=== PATIENT | female | born 2000 | race Caucasian/White ===

== ENCOUNTER 2024-02-24 11:45 | Emergency (ER) | payer MEDICAID, SELFPAY ==
[2024-02-24 11:49] VITALS: BP 130/80; PULSE 90; RESP 17; TEMP 36.8; O2SAT 98; BMI 41.1
--- NOTE | 2024-02-24 12:11 | PD.EDEAR ---
ED Ear RME/HPI General Chief complaint: Ear Stated complaint: LEFT EAR RUPTURED ; HX RUPTURED EARDRUM EL Time Seen by Provider: 02/24/24 11:50 Source: patient Arrival date/time: 02/24/24 11:45 Is a 23-year-old female presents emergency department with complaints of drainage to her left ear. Patient states she did travel up to the [facility] [place] and after that she felt popping and bulging to her left ear and noticed today there was a blood she does have a history of left eardrum rupture spontaneous. She does have a history of bilateral ear tubes as a child. Denies no fever no pain at this time. Mode of arrival: ambulatory Limitations: no limitations Related Data Previous Rx's ?Medication ?Instructions ?Recorded famotidine 20 mg tablet 20 mg PO BID #30 tabs 02/19/18 hydroxyzine HCl 25 mg tablet See Rx Instructions .Route 02/19/18 .COMPLEX #30 tabs ipratropium bromide 21 mcg (0.03 2 spray intranasal BID #30 mL 05/10/18 %) nasal spray hydrocodone 5 mg-acetaminophen 325 1 tab PO Q4H PRN pain #8 tabs 06/26/20 mg tablet ibuprofen 600 mg tablet 400 mg (0.6667 x 600 mg) PO Q6H 06/26/20 PRN pain #14 tabs amoxicillin 875 mg-potassium 1 tab PO BID 5 days #10 tabs 02/24/24 clavulanate 125 mg tablet loratadine 10 mg tablet (Allergy 10 mg PO QDAY #30 tabs 02/24/24 Relief (loratadine)) Allergies Allergy/AdvReac Type Severity Reaction Status Date / Time erythromycin base Allergy Mild Rash Verified 02/24/24 11:47 Penicillins Allergy Mild Rash Verified 02/24/24 11:47 sulfisoxazole Allergy Mild RASH, Verified 02/24/24 11:47 VOMITING Review of Systems Review of Systems Systems Reviewed: All systems reviewed, normal except as documented Narrative Review of Systems: Gen: No fever, no chills, no weight loss EYES: No discharge, no visual changes, no pain HEENT: +ear draniage , no congestion, no sore throat PULM: No shortness of breath, no cough, no congestion CV: No chest pain, no dyspnea on exertion, no palpitations GI: No nausea, no vomiting, no diarrhea, no pain, no constipation : No frequency, no urgency,? no dysuria Musc/skel: No joint pain, no back pain Skin: No rash? Past Medical History Past Medical History NEUROLOGIC: Negative Cerebrovascular Accident, Alzheimer's Disease or Meningitis CARDIAC: Negative Myocardial Infarction or Congestive Heart Failure RESPIRATORY: Positive Asthma; Negative Chronic Obstructive Pulmonary Disease (COPD), Emphysema or Cystic Fibrosis GASTROINTESTINAL: Negative Liver Cancer or Pancreatic Cancer GENITOURINARY: Negative Renal Disease MUSCULOSKELETAL: Negative Muscular Dystrophy or Bone Cancer ENT: Negative Blind or Deafness ENDOCRINE: Negative Endocrine Disorders, Diabetes Mellitus Type 1 or Diabetes Mellitus Type 2 (pre dm takes metformin) OTHER HISTORY: Negative Down Syndrome or Developmental Delay Surgical History SURGICAL: Positive Tympanostomy Tube and Tonsillectomy Social History SMOKING STATUS: Never smoker ED Exam General Limitations: Present no limitations General appearance: Present alert and in no apparent distress Head Head exam: Present atraumatic Eye Eye exam: Present normal appearance, PERRL and EOMI ENT ENT exam: Present normal oropharynx and mucous membranes moist Expanded ENT Exam External ear exam: Present normal external inspection TM/Canal exam: Left TM: perforation (+ Bloody discharge noted in canal) Neck Neck exam: Present normal inspection, full ROM and trachea midline Chest Chest inspection: Present normal inspection and symmetric chest wall rise Respiratory Respiratory exam: Present normal lung sounds bilaterally Cardiovascular Cardiovascular exam: Present regular rate, normal rhythm and normal heart sounds Abdominal Exam Abdominal exam: Present soft and normal bowel sounds Extremities Exam Extremities exam: Present normal inspection and full ROM Back Exam Back exam: Present normal inspection and full ROM Neurological Exam Neurological exam: Present alert, oriented X3 and CN II-XII intact Psychiatric Psychiatric exam: Present normal affect and normal mood Skin Skin exam: Present warm, dry, intact and normal color Course Quality Measures none Vital Signs Vital signs: Vital Signs Temperature 98.2 F 02/24/24 11:49 Pulse Rate 90 02/24/24 11:49 Respiratory Rate 17 02/24/24 11:49 Blood Pressure 130/80 02/24/24 11:49 Pulse Oximetry (%) 98 02/24/24 11:49 Oxygen Delivery Method Room Air 02/24/24 11:49 Ear Patient data External records reviewed:: [facility] previous records Clinical information provided by:: patient Social determinants that could affect healthcare access:: none Patient has the following chronic illnesses:: no How is presenting disease/condition affected by chronic disease/condition?: no chronic disease Evaluation data The following diagnostics were reviewed and interpreted by me:: other (specify) Lab and/or radiology exams considered but not ordered:: no Interpretation Summary: n/a Medications / Prescriptions Medications or Prescriptions considered but not ordered:: Rx sent Medication administrations:: no Consultations Consultation(s) initiated? (list below): No Diagnosis Ear Differential Diagnosis: otitis externa, otitis media, foreign body in ear and ruptured TM Most likely diagnosis given after review of the tests above:: Ruptured TM Admission Indicated Admission indicated?: not indicated Admission Request Was there a request for admission?: No Disposition Plan Disposition Plan: Discharge Discharge Attestation Discharge Attestation: The patient and all family members were given an opportunity to ask questions and understood the discharge instructions. Discharge instructions specifically effects, indications for sooner follow up or return to the emergency department, and the expected course of current diagnosis. Patient condition: Stable Discharge Plan Plan Patient Disposition: HOME (Self Care) Patient condition on transfer: Stable Prescriptions/Referrals Prescriptions/Med Rec: New amoxicillin-pot clavulanate 875-125 mg tablet 1 tab PO BID 5 Days Qty: 10 0RF loratadine [Allergy Relief (loratadine)] 10 mg tablet 10 mg PO QDAY Qty: 30 0RF No Action hydroxyzine HCl 25 mg tablet See Rx Instructions .Route .COMPLEX Qty: 30 0RF Rx Instructions: 1-2 tab(s) PO Q6-8 hours prn famotidine 20 mg tablet 20 mg PO BID Qty: 30 0RF ipratropium bromide 0.03 % spray,non-aerosol 2 spray INTRANASAL BID Qty: 30 0RF Rx Instructions: administer into each nostril; wait 30 seconds between sprays hydrocodone-acetaminophen 5-325 mg tablet 1 tab PO Q4H MDD 6 PRN (Reason: pain) Qty: 8 0RF ibuprofen 600 mg tablet 400 mg PO Q6H PRN (Reason: pain) Qty: 14 0RF Problem List Clinical Impression: Otitis media, purulent, acute, with spontaneous rupture of TM Patient/Caregiver Discharge Instructions Discharge Activity: as per physical therapy Education Materials: ED Ruptured Eardrum, Traumatic Additional Instructions: - Please start Augmentin as directed. Please continue to use Sudafed, and add loratadine allergy medication. Please attempt to have an ENT referral initiated again Return to the emergency department there is any worsening symptoms or condition Print Language: Ecuadorean Stand Alone Forms: Roxy Award Info., Patient Portal Info Letter Attestation MD Attestation The patient was seen by the midlevel practitioner. I, the co-signing physician, was present during the entire ER visit. While I did not physically examine the patient, I was available for consultation as needed.
== END 2024-02-24 12:52 | disposition home or self-care (01) ==
LOC: SERX 12:24
PROVIDERS: Emergency Provider Emergency Medicine
DX: H66.012 Acute suppurative otitis media with spontaneous rupture of ear drum, left ear (principal)
CPT/HCPCS: 99281